=== PATIENT | female | born 1945 | race Caucasian/White ===

== ENCOUNTER 2016-05-15 13:26 | Emergency (ER) | payer MEDICARE, BC ==
--- NOTE | 2016-05-15 14:39 | EDM.PDOC ---
[id number]: TROUBLE BREATHING, WEAKNESS, DIZZY Time Seen by Provider: 05/15/16 14:38 Source: Reports: Patient History Limitations: Reports: No limitations - History of Present Illness INITIAL COMMENTS - FREE TEXT/NARRATIVE: 70-year-old male with generalized weakness that has been worsening for weeks. She feels like she is short of breath with activity. No fevers but has had some chills, no significant pain. Today she felt so weak she couldn't walk and was dizzy so her family brought her in to be seen. She's had no diarrhea but has intermittent headaches. She does have a history of hypercalcemia, and had a very profound episode of sepsis with coma 6 years ago. Severity: moderate Location, General: Reports: generalized (Her legs especially feel weakest) Associated Symptoms: Reports: shortness of breath, weakness. Denies: chest pain , fever/chills, nausea/vomiting - Related Data Allergies/ADRs: Allergies Allergy/AdvReac Type Severity Reaction Status Date / Time gabapentin AdvReac Irritabilit Verified 05/15/16 13:57 y Home Meds: Home Meds Fluticasone/Salmeterol [Advair 250-50] 1 inh INH BID 10/16/13 [History] Lisinopril 5 mg PO DAILY 10/16/13 [History] Raloxifene [Evista] 60 mg PO DAILY 10/16/13 [History] Rosuvastatin [Crestor] 5 mg PO DAILY 10/16/13 [History] buPROPion [Wellbutrin XL] 300 mg PO DAILY 10/16/13 [History] Ibuprofen [Advil] 200 mg PO Q6HR PRN 02/04/14 [History] Albuterol Sulfate [Proair Hfa] 2 puff INH Q4H PRN 02/06/14 [History] Cholecalciferol (Vitamin D3) [Vitamin D] 2,000 units PO DAILY 02/06/14 [History] Diazepam [Valium] 5 mg PO DAILY PRN 02/06/14 [History] Multivitamin [Daily Multiple Vitamin] 1 tab PO DAILY 02/06/14 [History] Past Medical History Cardiovascular History: Reports: Hypertension Respiratory History: Reports: Bronchitis, recurrent, COPD, Pneumonia, recurrent , SOB Gastrointestinal History: Reports: GERD Genitourinary History: Reports: Acute renal failure 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: , 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 (see below) Other OB/BYN History: hyster Musculoskeletal History: Reports: Back pain, chronic, Osteoarthritis Neurological History: Reports: Headaches, chronic Psychiatric History: Reports: Anxiety, Depression, PTSD Dermatologic History: Reports: Melanoma - Past Surgical History GI Surgical History: Reports: Cholecystectomy, Colonoscopy Social & Family History - Tobacco Use Smoking Status *Q: Former Smoker Years of Tobacco use: 40 Packs/Tins Daily: 1.5 Used Tobacco, but Quit: Yes Month Tobacco Last Used: 0 Second Hand Smoke Exposure: No - Caffeine Use Caffeine Use: Reports: Coffee Other Caffeine Use: 1-2 cups per day - Alcohol Use Days Per Week of Alcohol Use: 0 - Recreational Drug Use Recreational Drug Use: No ED ROS GENERAL - Review of Systems Review Of Systems: See Below Constitutional: Reports: chills. Denies: fever HEENT: Reports: No symptoms Respiratory: Reports: Shortness of Breath (Especially with activity) Cardiovascular: Denies: Chest pain, Palpitations Endocrine: Reports: fatigue GI/Abdominal: Denies: Abdominal pain, Nausea, Vomiting : Reports: no symptoms Musculoskeletal: Reports: other (Diffuse muscle weakness but no pain). Denies: muscle pain Skin: Reports: no symptoms Neurological: Reports: Dizziness. Denies: Headache Psychiatric: Reports: No symptoms ED EXAM, GENERAL - Physical Exam Exam: See Below Exam Limited By: No limitations General Appearance: alert, no apparent distress Eye Exam: bilateral eye: normal inspection Ears: normal TMs Respiratory/Chest: no respiratory distress, lungs clear Cardiovascular: regular rate, rhythm GI/Abdominal: soft, non tender Extremities: normal inspection, other (Normal symmetric strength on my exam). No: pedal edema Neurological: alert, oriented, no motor/sensory deficits Psychiatric: normal affect, normal mood Skin Exam: Warm, Dry Course - Vital Signs Last Recorded V/S: Last Vital Signs Temp 99.1 F 05/15/16 15:55 Pulse 75 05/15/16 15:55 Resp 12 05/15/16 15:55 BP 112/59 L 05/15/16 15:55 Pulse Ox 95 05/15/16 15:55 - Orders/Labs/Meds Labs: Laboratory Tests 05/15/16 05/15/16 Range/Units 14:46 14:46 WBC 5.8 (4.5-11.0) K/uL RBC 4.50 (3.30-5.50) M/uL Hgb 13.0 (12.0-15.0) g/dL Hct 40.2 (36.0-48.0) % MCV 89 (80-98) fL MCH 29 (27-31) pg MCHC 32 (32-36) % Plt Count 246 (150-400) K/uL Neut % (Auto) 52 (36-66) % Lymph % (Auto) 29 (24-44) % [place] % (Auto) 13 H (2-6) % Eos % (Auto) 5 H (2-4) % Baso % (Auto) 1 (0-1) % Sodium 143 (140-148) mmol/L Potassium 4.4 (3.6-5.2) mmol/L Chloride 106 (100-108) mmol/L Carbon Dioxide 27 (21-32) mmol/L Anion Gap 10.1 (5.0-14.0) mmol/L BUN 13 (7-18) mg/dL Creatinine 0.8 (0.6-1.0) mg/dL Est Cr Clr Drug Dosing 54.13 mL/min Estimated GFR (MDRD) > 60 (>60) Glucose 80 (74-106) mg/dL Calcium 9.0 (8.5-10.1) mg/dL Total Bilirubin 0.3 (0.2-1.0) mg/dL AST 19 (15-37) U/L ALT 23 (12-78) U/L Alkaline Phosphatase 64 (46-116) U/L Creatine Kinase 77 (26-192) U/L Troponin I < 0.017 (0.000-0.056) ng/mL Total Protein 7.2 (6.4-8.2) g/dL Albumin 4.0 (3.4-5.0) g/dL Globulin 3.2 (2.3-3.5) g/dL Albumin/Globulin Ratio 1.3 (1.2-2.2) Meds: Medications Discontinued Medications Generic Name Dose Route Start Last Admin Trade Name Freq PRN Reason Stop Dose Admin Sodium Chloride 1,000 mls @ 1,000 mls/hr 05/15/16 15:00 05/15/16 15:22 Normal Saline IV 1,000 mls/hr ASDIRECTED CARLIE Administration - Re-Assessments/Exams Free Text/Narrative Re-Assessment/Exam: 05/15/16 16:08 1 L of normal saline was given to the patient while a CBC CMP and troponin were obtained. All labs were normal, patient was reassured. She likely has a lingering viral syndrome and needs to run its course. She was encouraged to increase activity and diet as tolerated and return if worsening or concerns. Departure - Departure Time of Disposition: 16:53 Disposition: Home, Self-Care 01 Condition: good Clinical Impression: Generalized muscle weakness, Dehydration, mild Instructions: Weakness, [id number], Dehydration, Adult Referrals: Omaira Cates PA [Primary Care Provider] - Forms: ED Department Discharge Care Plan Goals: Increase diet and activity as tolerated. Consider rechecking in 3-4 days if not improving satisfactorily.
[2016-05-15] MEDS ORDERED: Sodium Chloride 0.9% 1,000 ML IV SCH (15:00)
[2016-05-15 15:56] VITALS: BP 112/59
--- NOTE | 2016-05-16 10:34 | CR ---
Chest 2V HISTORY: Dyspnea COMPARISON: CT scan 10/29/2015. FINDINGS: COPD changes. Scarring in the peripheral aspect of the right upper lobe which was present on prior CT scan. No acute infiltrates or effusions. No acute congestive change.
== END 2016-05-15 16:52 | disposition home or self-care (01) ==
LOC: JP.ED 13:26
DX: R53.1 Weakness (principal); E86.0 Dehydration; I10 Essential (primary) hypertension; J44.9 Chronic obstructive pulmonary disease, unspecified; K21.9 Gastro-esophageal reflux disease without esophagitis; F41.9 Anxiety disorder, unspecified; F32.9 Major depressive disorder, single episode, unspecified; Z90.49 Acquired absence of other specified parts of digestive tract; Z79.899 Other long term (current) drug therapy; Z88.8 Allergy status to other drugs, medicaments and biological substances; Z87.891 Personal history of nicotine dependence
CPT/HCPCS: 36415; 71020; 80053; 82550; 84484; 85025; 96360; 96361; 99285; J7040; 99284

== ENCOUNTER 2016-06-07 06:48 | Day surgery (SDC) | payer MEDICARE, BC ==
[2016-06-07] MEDS ORDERED: Lidocaine 2% Viscous Solution 15 ML Cup ONE (06:57)
[2016-06-07] MEDS ORDERED: Lidocaine 4% Top Soln 50 ML Bottle ONE (06:58)
[2016-06-07] MEDS ORDERED: Propofol 200 MG/20 ML SDV ONE (06:58)
[2016-06-07] MEDS ORDERED: fentaNYL 100 MCG/2 ML SDV ONE (06:58)
[2016-06-07] MEDS ORDERED: Midazolam 1 MG/ML 2 ML SDV ONE (06:58)
[2016-06-07] MEDS ORDERED: Lidocaine 4% Top Soln 4 ML LTA Syringe ONE (07:00)
[2016-06-07] MEDS ORDERED: Iopamidol 612 MG/ML 100 ML Bottle IV PRN (07:24)
[2016-06-07] MEDS ORDERED: Sodium Chloride 0.9% 80 ML IV SCH (07:30)
[2016-06-07] MEDS ORDERED: Dextrose 5%-Lactated Ringers 1,000 ML IV SCH (07:45)
[2016-06-07] MEDS ORDERED: Ondansetron 4 MG/2 ML SDV ONE (11:45)
[2016-06-07] MEDS ORDERED: Ondansetron 4 MG/2 ML SDV IVPUSH ONE (11:50)
[2016-06-07 13:24] VITALS: BP 117/65
--- NOTE | 2016-06-10 10:50 | OR ---
DATE OF PROCEDURE: 06/07/2016 PREOPERATIVE DIAGNOSES: Worsening cough and respiratory symptoms. POSTOPERATIVE DIAGNOSIS: Grossly normal flexible bronchoscopy. OPERATIVE PROCEDURE: Flexible bronchoscopy with tracheobronchial washings and bronchoalveolar lavage to posterior segment of right upper lobe (10114). ANESTHESIA: Topical plus IV sedation. INDICATIONS: This is a 71-year-old with some worsening respiratory symptoms. Flexible bronchoscopy with biopsies and/or bronchoalveolar lavage is indicated. Preoperative CT scan was obtained, which showed emphysematous changes and some scarring in the posterior segment of the right upper lobe. There was a 5 mm subpleural nodule in the left lower lobe, which is likely doubtful of clinical significance. Plan is to proceed with a flexible bronchoscopy with biopsies and/or BAL as indicated. Potential risks including bleeding and infection, aspiration of gastric contents and such were reviewed, and the patient wishes to proceed. DETAILS OF PROCEDURE: The patient was taken to the operating room and placed in a supine position. After IV sedation was administered, the translaryngeal injection of lidocaine was placed per Anesthesia, and the flexible bronchoscope was then passed through the right side of the nose. The visualized nasopharynx, hypopharynx, and larynx were unremarkable. Cord motion was symmetrical. As one passed into the trachea, generalized tracheobronchial exam was undertaken. This was essentially normal with there being no unusual secretions and no redness or areas of narrowing. At that point, diffuse tracheobronchial washings were obtained. Given that the only significant site of pathology appeared to be in the posterior segment of the right upper lobe, bronchoalveolar lavage was obtained at that level with injection of 200 mL of saline. Relatively little fluid came back, but enough for diagnostic purposes, as most of this probably filled into some emphysematous blebs. The scope was then withdrawn and the procedure then concluded. The plan will be to have the patient follow up with Omaira Cates in [facility] in 7-10 days. With the pulmonary nodule being seen on CT scan, I think I would recommend repeating a CT scan at 6-month intervals for 2 years. If it remains stable at that point, then further followup would not be necessary. Akhil Brown MD /[id number]
== END 2016-06-07 14:00 | disposition home or self-care (01) ==
LOC: JP.SDS 06:48 → EDSTATUS 10:15 → JP.SDS 14:00
PROVIDERS: ATTEND Surgery
DX: R05 Cough (principal); J44.9 Chronic obstructive pulmonary disease, unspecified; Z79.899 Other long term (current) drug therapy
CPT/HCPCS: 31624; 71260; 87015; 87070; 87077; 87102; 87116; 87205; 87206; 87220; A9270; J2250; J2405; J2704; J3010; J7030; J7042; Q9967; 88112; 88305

== ENCOUNTER 2016-08-22 11:30 | Emergency (ER) | payer MEDICARE, BC ==
[2016-08-22 12:28] VITALS: BP 140/68
[2016-08-22] MEDS ORDERED: Aspirin 81 MG Tab.Chew PO ONE (12:44)
--- NOTE | 2016-08-22 13:42 | EDM.PDOC ---
ED HPI GENERAL MEDICAL PROBLEM - General Chief Complaint: Chest Pain Stated Complaint: CHEST PAINS, HIGH BLOOD PRESSURE, DIZZY Time Seen by Provider: 08/22/16 11:50 History Limitations: Reports: No Limitations - History of Present Illness INITIAL COMMENTS - FREE TEXT/NARRATIVE: pt arrived she was in PT and she devloped pain in the rt chest and her bp was higher than usual. She felt like she had a tightness in the head area. Onset: Other ( this came on quite suddenly while having therapy. ) Duration: Minutes: Location: Reports: Chest Associated Symptoms: Reports: No Other Symptoms - Related Data Allergies Allergy/AdvReac Type Severity Reaction Status Date / Time codeine Allergy Other Verified 08/22/16 12:45 gabapentin AdvReac Irritabilit Verified 08/22/16 12:45 y Home Meds: Home Meds Fluticasone/Salmeterol [Advair 250-50] 1 inh INH BID 10/16/13 [History] Lisinopril 5 mg PO DAILY 10/16/13 [History] Raloxifene [Evista] 60 mg PO DAILY 10/16/13 [History] Rosuvastatin [Crestor] 5 mg PO DAILY 10/16/13 [History] buPROPion [Wellbutrin XL] 300 mg PO DAILY 10/16/13 [History] Ibuprofen [Advil] 200 mg PO Q6HR PRN 02/04/14 [History] Cholecalciferol (Vitamin D3) [Vitamin D] 2,000 units PO DAILY 02/06/14 [History] Diazepam [Valium] 5 mg PO DAILY PRN 02/06/14 [History] Multivitamin [Daily Multiple Vitamin] 1 tab PO DAILY 02/06/14 [History] Albuterol [Ventolin HFA] 2 puff IH Q4HR PRN 06/03/16 [History] Aspirin [Adult Low Dose Aspirin EC] 81 mg PO DAILY 06/03/16 [History] Benzonatate [Tessalon Perles] 100 mg PO TID PRN 06/03/16 [History] Esomeprazole Magnesium [Nexium] 40 mg PO DAILY 06/03/16 [History] Nicotine Polacrilex [Nicotine Gum] 1 stick PO ASDIRECTED PRN 06/03/16 [History] Nystatin [Mycostatin] 5 ml PO QID PRN 06/03/16 [History] traZODone 12.5 mg PO BEDTIME 06/03/16 [History] Past Medical History HEENT History: Reports: Cataract Other HEENT History: upper and lower dental implants Cardiovascular History: Reports: High Cholesterol, Hypertension Respiratory History: Reports: Asthma, Bronchitis, Recurrent, COPD, Pneumonia, Recurrent, SOB Gastrointestinal History: Reports: GERD Genitourinary History: Reports: Acute Renal Failure 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: , 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) Other OB/BYN History: hyster Musculoskeletal History: Reports: Back Pain, Chronic, Osteoarthritis Neurological History: Reports: Headaches, Chronic Psychiatric History: Reports: Anxiety, Depression, PTSD Oncologic (Cancer) History: Reports: 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) Other Oncologic History: melanoma Dermatologic History: Reports: Melanoma - Past Surgical History Respiratory Surgical History: Reports: 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) GI Surgical History: Reports: Cholecystectomy, Colonoscopy Female Surgical History: Reports: Hysterectomy, Salpingo-Oophorectomy, Tubal Ligation Social & Family History - Tobacco Use Smoking Status *Q: Former Smoker Years of Tobacco use: 50 Packs/Tins Daily: 1 Used Tobacco, but Quit: No Month Tobacco Last Used: 0 Second Hand Smoke Exposure: No - Caffeine Use Caffeine Use: Reports: Coffee Other Caffeine Use: 1-2 cups per day - Alcohol Use Days Per Week of Alcohol Use: 0 - Recreational Drug Use Recreational Drug Use: No ED ROS GENERAL - Review of Systems Review Of Systems: See Below Constitutional: Reports: No Symptoms HEENT: Reports: No Symptoms Respiratory: Reports: No Symptoms Cardiovascular: Reports: No Symptoms, Other (pain in the rt chest. ) Endocrine: Reports: No Symptoms GI/Abdominal: Reports: No Symptoms : Reports: No Symptoms Musculoskeletal: Reports: Other ( tight in the post cervical area. ) Skin: Reports: No Symptoms ED EXAM, GENERAL - Physical Exam Exam: See Below Free Text/Narrative:: Pt had tightness in the post cervical anrea and about the head. She had some rt sided chest pain. Her bp went up for her but not extrwemely high. Exam Limited By: No Limitations General Appearance: Alert, Anxious Ears: Normal TMs Nose: Normal Inspection Throat/Mouth: Normal Inspection Head: Atraumatic Neck: Other (muscle spasm) Respiratory/Chest: No Respiratory Distress, Other ( mild tenderness in the chest wall on the rt. ) Cardiovascular: Regular Rate, Rhythm GI/Abdominal: Soft, Non-Tender, Other ( no sig epigastric tenderness) Rectal (Female) Exam: Deferred Back Exam: Normal Inspection Extremities: Normal Inspection Neurological: Alert, Oriented, Normal Cognition Psychiatric: Anxious, Other ( bp mildly elevated. ) Course - Vital Signs Last Recorded V/S: Last Vital Signs Temp 36.5 C 08/22/16 11:47 Pulse 80 08/22/16 12:28 Resp 16 08/22/16 12:28 BP 140/68 08/22/16 12:28 Pulse Ox 92 L 08/22/16 12:28 - Orders/Labs/Meds Orders: Active Orders 24 hr Category Date Time Status EKG Documentation Completion [RC] ASDIRECTED Care 08/22/16 11:55 Active EKG 12 Lead [EK] Routine Ther 08/22/16 11:55 Ordered Labs: Laboratory Tests 08/22/16 08/22/16 08/22/16 Range/Units 12:04 12:04 12:04 WBC 6.3 (4.5-11.0) K/uL RBC 4.55 (3.30-5.50) M/uL Hgb 13.4 (12.0-15.0) g/dL Hct 40.9 (36.0-48.0) % MCV 90 (80-98) fL MCH 30 (27-31) pg MCHC 33 (32-36) % Plt Count 238 (150-400) K/uL Neut % (Auto) 63 (36-66) % Lymph % (Auto) 22 L (24-44) % [place] % (Auto) 11 H (2-6) % Eos % (Auto) 3 (2-4) % Baso % (Auto) 1 (0-1) % Sodium 139 L (140-148) mmol/L Potassium 4.0 (3.6-5.2) mmol/L Chloride 104 (100-108) mmol/L Carbon Dioxide 29 (21-32) mmol/L Anion Gap 10.0 (5.0-14.0) mmol/L BUN 15 (7-18) mg/dL Creatinine 0.8 (0.6-1.0) mg/dL Est Cr Clr Drug Dosing 51.01 mL/min Estimated GFR (MDRD) > 60 (>60) Glucose 128 H (74-106) mg/dL Calcium 9.0 (8.5-10.1) mg/dL Total Bilirubin 0.2 (0.2-1.0) mg/dL AST 19 (15-37) U/L ALT 18 (12-78) U/L Alkaline Phosphatase 68 (46-116) U/L Creatine Kinase (26-192) U/L Troponin I < 0.017 (0.000-0.056) ng/mL Total Protein 7.1 (6.4-8.2) g/dL Albumin 3.6 (3.4-5.0) g/dL Globulin 3.5 (2.3-3.5) g/dL Albumin/Globulin Ratio 1.0 L (1.2-2.2) Urine Color Urine Appearance Urine pH (4.5-8.0) Ur Specific [place] (1.008-1.030) Urine Protein (NEGATIVE) mg/dL Urine Glucose (UA) (NEGATIVE) mg/dL Urine Ketones (NEGATIVE) mg/dL Urine Occult Blood (NEGATIVE) Urine Nitrite (NEGATIVE) Urine Bilirubin (NEGATIVE) Urine Urobilinogen (NORMAL) mg/dL Ur Leukocyte Esterase (NEGATIVE) Urine RBC (0-5) Urine WBC (0-5) Ur Epithelial Cells Amorphous Sediment Urine Bacteria Urine Mucus 08/22/16 08/22/16 Range/Units 12:04 12:37 WBC (4.5-11.0) K/uL RBC (3.30-5.50) M/uL Hgb (12.0-15.0) g/dL Hct (36.0-48.0) % MCV (80-98) fL MCH (27-31) pg MCHC (32-36) % Plt Count (150-400) K/uL Neut % (Auto) (36-66) % Lymph % (Auto) (24-44) % [place] % (Auto) (2-6) % Eos % (Auto) (2-4) % Baso % (Auto) (0-1) % Sodium (140-148) mmol/L Potassium (3.6-5.2) mmol/L Chloride (100-108) mmol/L Carbon Dioxide (21-32) mmol/L Anion Gap (5.0-14.0) mmol/L BUN (7-18) mg/dL Creatinine (0.6-1.0) mg/dL Est Cr Clr Drug Dosing mL/min Estimated GFR (MDRD) (>60) Glucose (74-106) mg/dL Calcium (8.5-10.1) mg/dL Total Bilirubin (0.2-1.0) mg/dL AST (15-37) U/L ALT (12-78) U/L Alkaline Phosphatase (46-116) U/L Creatine Kinase 1 L (26-192) U/L Troponin I (0.000-0.056) ng/mL Total Protein (6.4-8.2) g/dL Albumin (3.4-5.0) g/dL Globulin (2.3-3.5) g/dL Albumin/Globulin Ratio (1.2-2.2) Urine Color Yellow Urine Appearance Clear Urine pH 6.0 (4.5-8.0) Ur Specific [place] 1.015 (1.008-1.030) Urine Protein Negative (NEGATIVE) mg/dL Urine Glucose (UA) Normal (NEGATIVE) mg/dL Urine Ketones Negative (NEGATIVE) mg/dL Urine Occult Blood Negative (NEGATIVE) Urine Nitrite Negative (NEGATIVE) Urine Bilirubin Negative (NEGATIVE) Urine Urobilinogen Normal (NORMAL) mg/dL Ur Leukocyte Esterase Negative (NEGATIVE) Urine RBC 0-5 (0-5) Urine WBC Not seen (0-5) Ur Epithelial Cells Few Amorphous Sediment Not seen Urine Bacteria Not seen Urine Mucus Not seen Meds: Medications Discontinued Medications Generic Name Dose Route Start Last Admin Trade Name Freq PRN Reason Stop Dose Admin Aspirin 324 mg 08/22/16 12:44 08/22/16 13:41 Aspirin PO 08/22/16 12:45 324 mg ONETIME ONE Administration - Re-Assessments/Exams Free Text/Narrative Re-Assessment/Exam: 08/22/16 13:52 cardiac enzymes were normal, ekg looked good, other lab was normal. She was given asa. The pain went away shortly after arival and her bp went down. m Departure - Departure Time of Disposition: 13:42 Disposition: Home, Self-Care 01 Condition: Fair Clinical Impression: Atypical chest pain Referrals: Omaira Cates PA [Primary Care Provider] - Forms: ED Department Discharge Care Plan Goals: follow up appt with Concha Cates, If she has any further chest pain and she has not had a cardiac stress darryl recenly she should have a lexiscan, rtc if increased problems. - My Orders Last 24 Hours: My Active Orders 08/22/16 11:55 EKG Documentation Completion [RC] ASDIRECTED EKG 12 Lead [EK] Routine - Assessment/Plan Last 24 Hours: My Active Orders 08/22/16 11:55 EKG Documentation Completion [RC] ASDIRECTED EKG 12 Lead [EK] Routine
== END 2016-08-22 13:55 | disposition home or self-care (01) ==
LOC: JP.ED 11:30
DX: R07.89 Other chest pain (principal); E78.00 Pure hypercholesterolemia, unspecified; I10 Essential (primary) hypertension; J45.909 Unspecified asthma, uncomplicated; J44.9 Chronic obstructive pulmonary disease, unspecified; Z87.01 Personal history of pneumonia (recurrent); K21.9 Gastro-esophageal reflux disease without esophagitis; M19.90 Unspecified osteoarthritis, unspecified site; F41.9 Anxiety disorder, unspecified; F32.9 Major depressive disorder, single episode, unspecified; Z90.710 Acquired absence of both cervix and uterus; Z88.5 Allergy status to narcotic agent; Z88.8 Allergy status to other drugs, medicaments and biological substances; Z79.899 Other long term (current) drug therapy; Z79.82 Long term (current) use of aspirin; Z98.49 Cataract extraction status, unspecified eye; Z87.891 Personal history of nicotine dependence; N17.9 Acute kidney failure, unspecified
CPT/HCPCS: 36415; 80053; 81001; 82550; 84484; 85025; 93005; 99285; A9270; 93010; 99284

== ENCOUNTER 2018-04-03 14:57 | Emergency (ER) | payer MEDICARE, BC, MEDICAID ==
[2018-04-03] MEDS ORDERED: Simethicone 80 MG Tab.Chew PO ONE (15:47)
[2018-04-03] MEDS ORDERED: LORazepam 1 MG Tab PO ONE (16:16)
[2018-04-03] MEDS ORDERED: Lactated Ringers 1,000 ML IV ONE (16:50)
[2018-04-03] MEDS ORDERED: Sodium Chloride 0.9% 10 ML Syringe FLUSH PRN (16:53)
[2018-04-03] MEDS ORDERED: Sodium Chloride 0.9% 80 ML IV SCH (17:00)
[2018-04-03] MEDS ORDERED: Iopamidol 612 MG/ML 100 ML Bottle IV SCH (17:00)
--- NOTE | 2018-04-03 18:14 | CRLCT ---
INDICATION: Abdominal pain. Distention TECHNIQUE: CT abdomen and pelvis acquired with IV contrast. 78 mL of Isovue 300 administered. COMPARISON: None available FINDINGS: Lower chest: Unremarkable. Liver: Multiple small near water attenuation hepatic low-density lesions suggestive of cysts, measuring up to 1.6 cm, although some are too small to adequately evaluate. Spleen: Unremarkable. Pancreas: Apparent fatty atrophy of the pancreatic head. A curvilinear regional soft tissue density on image 45 could represent residual pancreatic tissue. Minimal reticular densities along the pancreatic body and tail which may be related to pancreatic tissue. Gallbladder and bile ducts: Cholecystectomy Adrenal glands: Unremarkable. Kidneys: No hydronephrosis. Apparent minimal urothelial enhancement in portions of the ureters which could be physiologic. GI tract: A contracted stomach, limiting evaluation. Gas and fluid filled, however not abnormally dilated, abdominal and pelvic small bowel segments, nonspecific. A normal appendix. Scattered colonic diverticula without diverticulitis. An irregular soft tissue density in the proximal ascending colon on image 61 of series 2. Vascular structures: Atherosclerotic changes. Lymph nodes: No abnormally enlarged lymph nodes. Subcentimeter right lower quadrant mesenteric lymph nodes, nonspecific. Miscellaneous: No free air or significant free fluid. Pelvic Organs: Hysterectomy. A small focus of mild soft tissue prominence at the bladder base seen on image 58 of series 4, versus volume averaging with adjacent tissues. Bones: Unremarkable for age. IMPRESSION: No evidence of appendicitis, diverticulitis or bowel obstruction. Some fluid and gas-filled small bowel segments are nonspecific. Correlate clinically to exclude a mild enteritis. Minimal reticular densities along the pancreas may be related to pancreatic tissue, however correlate with pancreatic enzymes to exclude mild pancreatic inflammation. An irregular soft tissue density in the proximal ascending colon could be partially related to peristalsis, however the appearance is concerning for a primary colonic neoplasm and further evaluation with colonoscopy is recommended. Minimal urothelial enhancement in portions of the ureters could be physiologic. Correlate with urinalysis. Mild focal soft tissue prominence at the bladder base may be related to volume averaging, however recommend further urological evaluation to exclude a small urothelial lesion. Dictated by Marco Antonio Castillo MD @ 04/03/2018 6:13:45 PM Please note that all CT scans at this facility use dose modulation, iterative reconstruction, and/or weight-based dosing when appropriate to reduce radiation dose to as low as reasonably achievable. Dictated by: Marco Antonio Castillo MD @ 04/03/2018 18:13:52 (Electronically Signed)
[2018-04-03 18:24] VITALS: BP 132/70
--- NOTE | 2018-04-03 18:30 | EDM.PDOC ---
ED HPI GENERAL MEDICAL PROBLEM - General Chief Complaint: Gastrointestinal Problem Stated Complaint: FROM CLINIC POSSIBLE BOWL OBSTRUCTION Time Seen by Provider: 04/03/18 15:33 Source of Information: Reports: Patient, Family, Old Records, RN Notes Reviewed History Limitations: Reports: No Limitations - History of Present Illness INITIAL COMMENTS - FREE TEXT/NARRATIVE: 72-year-old female sent over from clinic for concern about bowel obstruction she did present with lab work which was reviewed as well as chest x-ray and abdominal film, the abdominal film shows nonspecific dilated loops of bowel which is confirmed by radiology. abdominal Pain Score (Numeric/FACES): 2 - Related Data Allergies Allergy/AdvReac Type Severity Reaction Status Date / Time codeine AdvReac Nausea and Verified 04/03/18 15:16 Vomiting gabapentin AdvReac Irritabilit Verified 04/03/18 15:16 y Home Meds: Home Meds Fluticasone/Salmeterol [Advair 250-50] 1 inh INH BID 10/16/13 [History] Lisinopril 5 mg PO DAILY 10/16/13 [History] Raloxifene [Evista] 60 mg PO DAILY 10/16/13 [History] Rosuvastatin [Crestor] 5 mg PO DAILY 10/16/13 [History] buPROPion [Wellbutrin XL] 300 mg PO DAILY 10/16/13 [History] Ibuprofen [Advil] 200 mg PO Q6HR PRN 02/04/14 [History] Cholecalciferol (Vitamin D3) [Vitamin D] 2,000 units PO DAILY 02/06/14 [History] Multivitamin [Daily Multiple Vitamin] 1 tab PO DAILY 02/06/14 [History] Albuterol [Ventolin HFA] 2 puff IH Q4HR PRN 06/03/16 [History] Esomeprazole Magnesium [Nexium] 40 mg PO DAILY 06/03/16 [History] Nicotine Polacrilex [Nicotine Gum] 1 stick PO ASDIRECTED PRN 06/03/16 [History] traZODone 12.5 mg PO BEDTIME 06/03/16 [History] Biotin 10,000 mcg PO DAILY 03/29/17 [History] Past Medical History HEENT History: Reports: Cataract Other HEENT History: upper and lower dental implants Cardiovascular History: Reports: High Cholesterol, Hypertension Respiratory History: Reports: Asthma, Bronchitis, Recurrent, COPD, Pneumonia, Recurrent, SOB Gastrointestinal History: Reports: GERD Genitourinary History: Reports: Acute Renal Failure 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: , 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 History: hyster Musculoskeletal History: Reports: Back Pain, Chronic, Osteoarthritis, Other ( See Below) Other Musculoskeletal History: Lambert-Eaton Syndrome Neurological History: Reports: Headaches, Chronic Psychiatric History: Reports: Anxiety, Depression, PTSD Oncologic (Cancer) History: Reports: Lung, 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) Other Oncologic History: melanoma Dermatologic History: Reports: Melanoma - Past Surgical History Respiratory Surgical History: Reports: 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) Other Respiratory Surgeries/Procedures: bronchoscopy GI Surgical History: Reports: Cholecystectomy, Colonoscopy Female Surgical History: Reports: Hysterectomy, Salpingo-Oophorectomy, Tubal Ligation Oncologic Surgical History: Reports: 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) Other Oncologic Surgeries/Procedures: chemo and radiation a year ago. Social & Family History - Tobacco Use Smoking Status *Q: Former Smoker Used Tobacco, but Quit: Yes Month/Year Tobacco Last Used: 8 - Caffeine Use Caffeine Use: Reports: Coffee, Soda Other Caffeine Use: 1-2 cups per day - Recreational Drug Use Recreational Drug Use: No ED ROS GENERAL - Review of Systems Review Of Systems: See Below Constitutional: Reports: No Symptoms HEENT: Reports: No Symptoms Respiratory: Reports: No Symptoms Cardiovascular: Reports: No Symptoms GI/Abdominal: Reports: Abdominal Pain. Denies: Flatus, Nausea, Vomiting : Reports: No Symptoms Musculoskeletal: Reports: Back Pain ED EXAM, GI/ABD - Physical Exam Exam: See Below Exam Limited By: No Limitations General Appearance: Alert, WD/WN, No Apparent Distress Respiratory/Chest: No Respiratory Distress, Lungs Clear, Normal Breath Sounds, No Accessory Muscle Use, Chest Non-Tender Cardiovascular: Regular Rate, Rhythm, No Murmur GI/Abdominal Exam: Normal Bowel Sounds, Soft, Distended, Tender Course - Vital Signs Last Recorded V/S: Last Vital Signs Temp 98.1 F 04/03/18 16:52 Pulse 97 04/03/18 18:23 Resp 16 04/03/18 18:23 BP 132/70 04/03/18 18:23 Pulse Ox 94 L 04/03/18 18:23 - Orders/Labs/Meds Orders: Active Orders 24 hr Category Date Time Status Iopamidol [Isovue-300 (61%)] Med 04/03/18 17:00 Active 78 ml IV . DIRECTED Lactated Ringers [Ringers, Lactated] 1,000 ml Med 04/03/18 16:50 Active IV BOLUS Sodium Chloride 0.9% [Normal Saline] 80 ml Med 04/03/18 17:00 Active IV ASDIRECTED Sodium Chloride 0.9% [Saline Flush] Med 04/03/18 16:53 Active 10 ml FLUSH ASDIRECTED PRN Nasogastric Orogastric Tube Insertion [OM.PC] Routine Oth 04/03/18 16:16 Ordered Medication Orders Lactated Ringer's (Ringers, Lactated) 1,000 mls @ 500 mls/hr IV BOLUS ONE Stop: 04/03/18 18:49 Last Admin: 04/03/18 17:22 Dose: 500 mls/hr Sodium Chloride (Normal Saline) 80 mls @ 3 mls/sec IV ASDIRECTED CARLIE Last Admin: 04/03/18 17:20 Dose: 3 mls/sec Iopamidol (Isovue-300 (61%)) 78 ml IV . DIRECTED CARLIE Last Admin: 04/03/18 17:20 Dose: 78 ml Sodium Chloride (Saline Flush) 10 ml FLUSH ASDIRECTED PRN PRN Reason: Keep Vein Open Last Admin: 04/03/18 17:20 Dose: 10 ml Meds: Medications Generic Name Dose Route Start Last Admin Trade Name Freq PRN Reason Stop Dose Admin Lactated Ringer's 1,000 mls @ 500 mls/hr 04/03/18 16:50 04/03/18 17:22 Ringers, Lactated IV 04/03/18 18:49 500 mls/hr BOLUS ONE Administration Sodium Chloride 80 mls @ 3 mls/sec 04/03/18 17:00 04/03/18 17:20 Normal Saline IV 3 mls/sec ASDIRECTED CARLIE Administration Iopamidol 78 ml 04/03/18 17:00 04/03/18 17:20 Isovue-300 (61%) IV 78 ml . DIRECTED CARLIE Administration Sodium Chloride 10 ml 04/03/18 16:53 04/03/18 17:20 Saline Flush FLUSH 10 ml ASDIRECTED PRN Administration Keep Vein Open Discontinued Medications Generic Name Dose Route Start Last Admin Trade Name Freq PRN Reason Stop Dose Admin Lorazepam 1 mg 04/03/18 16:16 04/03/18 16:20 Ativan PO 04/03/18 16:17 1 mg ONETIME ONE Administration Simethicone 160 mg 04/03/18 15:47 04/03/18 15:53 Simethicone PO 04/03/18 15:48 160 mg ONETIME ONE Administration Departure - Departure Time of Disposition: 18:29 Disposition: Home, Self-Care 01 Condition: Fair Clinical Impression: Abdominal distention - Discharge Information Referrals: Omaira Cates PA [Primary Care Provider] - Forms: ED Department Discharge Additional Instructions: Continue to try the simethicone as needed for gas relief, Please followup with your primary care provider in 3-5 days if not better, please call return to the emergency department with worsening of symptoms. - Problem List Review Problem List Initiated/Reviewed/Updated: (B thank you) - My Orders Last 24 Hours: My Active Orders 04/03/18 16:16 Nasogastric Orogastric Tube Insertion [OM.PC] Routine 04/03/18 16:50 Lactated Ringers [Ringers, Lactated] 1,000 ml IV BOLUS 04/03/18 16:53 Sodium Chloride 0.9% [Saline Flush] 10 ml FLUSH ASDIRECTED PRN 04/03/18 17:00 Iopamidol [Isovue-300 (61%)] 78 ml IV . DIRECTED Sodium Chloride 0.9% [Normal Saline] 80 ml IV ASDIRECTED - Assessment/Plan Last 24 Hours: My Active Orders 04/03/18 16:16 Nasogastric Orogastric Tube Insertion [OM.PC] Routine 04/03/18 16:50 Lactated Ringers [Ringers, Lactated] 1,000 ml IV BOLUS 04/03/18 16:53 Sodium Chloride 0.9% [Saline Flush] 10 ml FLUSH ASDIRECTED PRN 04/03/18 17:00 Iopamidol [Isovue-300 (61%)] 78 ml IV . DIRECTED Sodium Chloride 0.9% [Normal Saline] 80 ml IV ASDIRECTED Plan: Assessment Acuity = acute Site and laterality = nonspecific abdominal distention Etiology = probable ileus versus enteritis Manifestations = none Location of injury = Home Lab values = CT scan shows no acute process no bowel obstruction Plan We did a variety treatment; attempted to place an NG for comfort however none of this was effective she is going to try and go home follow-up with primary care in 3-5 days if no improvement This note was dictated using [employer] voice recognition software please call with any questions on syntax or grammar.
== END 2018-04-03 18:50 | disposition home or self-care (01) ==
LOC: JP.ED 14:57
DX: R14.0 Abdominal distension (gaseous) (principal); E78.00 Pure hypercholesterolemia, unspecified; I10 Essential (primary) hypertension; J45.909 Unspecified asthma, uncomplicated; K21.9 Gastro-esophageal reflux disease without esophagitis; Z88.5 Allergy status to narcotic agent; Z87.891 Personal history of nicotine dependence; Z88.8 Allergy status to other drugs, medicaments and biological substances; Z79.899 Other long term (current) drug therapy
CPT/HCPCS: 74177; 96360; 96361; 99284; A9270; J1642; J7030; J7120; Q9967

== ENCOUNTER 2020-07-27 20:27 | Emergency (ER) | payer MEDICARE, BC, MEDICAID ==
[2020-07-27 21:03] VITALS: BP 162/90; PULSE 85
[2020-07-27] MEDS ORDERED: Bacitracin Oint 1 GM U/D Packet TOP ONE (21:22)
--- NOTE | 2020-07-27 21:24 | EDM.PDOC ---
ED HPI GENERAL MEDICAL PROBLEM - General Chief Complaint: Wound Recheck Stated Complaint: CUT ON LEG Time Seen by Provider: 07/27/20 21:10 Source of Information: Reports: Patient, Old Records, RN History Limitations: Reports: No Limitations - History of Present Illness INITIAL COMMENTS - FREE TEXT/NARRATIVE: 75 yo female incurred a skin tear of her R castanon 2 days ago. Has not been to the clinic. Carlito decided to come to the ER to make sure it wasn't infected. She states she is UTD on her tetanus. Onset: Sudden Onset Date: 07/25/20 Duration: Day(s): (2), Constant Location: Reports: Lower Extremity, Right Quality: Reports: Dull Severity: Mild Improves with: Reports: None Worsens with: Reports: None Context: Reports: Trauma Associated Symptoms: Reports: No Other Symptoms Treatments MANAGER APPLIED: Reports: Other (see below) (Did clean wound at home. ) - Related Data Allergies Allergy/AdvReac Type Severity Reaction Status Date / Time codeine AdvReac Nausea and Verified 07/27/20 21:06 Vomiting gabapentin AdvReac Irritabilit Verified 07/27/20 21:06 y Home Meds: Home Meds Fluticasone/Salmeterol [Advair 250-50] 1 inh INH BID 10/16/13 [History] Raloxifene [Evista] 60 mg PO DAILY 10/16/13 [History] buPROPion [Wellbutrin XL] 300 mg PO DAILY 10/16/13 [History] Ibuprofen [Advil] 200 mg PO Q6HR PRN 02/04/14 [History] Cholecalciferol (Vitamin D3) [Vitamin D] 2,000 units PO DAILY 02/06/14 [History] Multivitamin [Daily Multiple Vitamin] 1 tab PO DAILY 02/06/14 [History] Albuterol [Ventolin HFA] 2 puff IH Q4HR PRN 06/03/16 [History] Esomeprazole Magnesium [Nexium] 20 mg PO DAILY 06/03/16 [History] Nicotine Polacrilex [Nicotine Gum] 1 stick PO ASDIRECTED PRN 06/03/16 [History] traZODone 12.5 mg PO BEDTIME 06/03/16 [History] *Igg Infusions 0 mg IV ASDIRECTED 07/27/20 [History] Amifampridine Phosphate [Firdapse] 10 mg PO ASDIRECTED 07/27/20 [History] Past Medical History HEENT History: Reports: Cataract Other HEENT History: upper and lower dental implants Cardiovascular History: Reports: High Cholesterol, Hypertension Respiratory History: Reports: Asthma, Bronchitis, Recurrent, COPD, Pneumonia, Recurrent, SOB Gastrointestinal History: Reports: GERD Genitourinary History: Reports: Acute Renal Failure 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 Musculoskeletal History: Reports: Back Pain, Chronic, Osteoarthritis, 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) Other Musculoskeletal History: Lambert-Eaton Syndrome Neurological History: Reports: Headaches, Chronic Psychiatric History: Reports: Anxiety, Depression, PTSD Oncologic (Cancer) History: Reports: Lung, 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) Other Oncologic History: melanoma Dermatologic History: Reports: Melanoma - Past Surgical History HEENT Surgical History: Reports: Cataract Surgery Respiratory Surgical History: Reports: 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) Other Respiratory Surgeries/Procedures: bronchoscopy GI Surgical History: Reports: Cholecystectomy, Colonoscopy Female Surgical History: Reports: Hysterectomy, Salpingo-Oophorectomy, Tubal Ligation Social & Family History - Family History Family Medical History: No Pertinent Family History - Tobacco Use Tobacco Use Status *Q: Never Tobacco User - Caffeine Use Caffeine Use: Reports: Coffee Other Caffeine Use: 1-2 cups per day ED ROS GENERAL - Review of Systems Review Of Systems: See Below Constitutional: Reports: No Symptoms Musculoskeletal: Reports: No Symptoms Skin: Reports: Wound (R ant/lateral castanon area). Denies: Erythema Neurological: Reports: No Symptoms ED EXAM, SKIN/RASH Exam: See Below Exam Limited By: No Limitations General Appearance: Alert, WD/WN, No Apparent Distress Extremities: Normal Inspection Neurological: Alert, Oriented, CN II-XII Intact, Normal Cognition, No Motor/Sensory Deficits Psychiatric: Normal Affect, Normal Mood Skin: Warm, Dry, Normal Color, No Rash, Wound/Incision (skin tear approx 2.5 cm in diameter ant/lateral R castanon. No increased warmth or redness. No drainage. ) Characteristics: No: Erythematous Associated features: No: Warmth, Tenderness, Induration, Lymphangitis Course - Vital Signs Last Recorded V/S: Last Vital Signs Temp 36.8 C 07/27/20 21:18 Pulse 85 07/27/20 21:18 Resp 16 07/27/20 21:18 BP 162/90 H 07/27/20 21:18 Pulse Ox 94 L 07/27/20 21:18 Departure - Departure Time of Disposition: 21:30 Disposition: Home, Self-Care 01 Condition: Good Clinical Impression: Skin tear of right lower leg without complication Qualifiers: Encounter type: initial encounter Qualified Code(s): S81.811A - Laceration without foreign body, right lower leg, initial encounter - Discharge Information *PRESCRIPTION DRUG MONITORING PROGRAM REVIEWED*: Not Applicable *COPY OF PRESCRIPTION DRUG MONITORING REPORT IN PATIENT MITRA: Not Applicable Instructions: Skin Tear, [id number] Referrals: Omaira Cates PA [Primary Care Provider] - Additional Instructions: Clean your wound twice a day with soap and water. Dry. Apply antibiotic ointment and a new dressing. Recheck for increased warmth and/or redness. Sepsis Event Note (ED) - Evaluation Sepsis Screening Result: No Definite Risk - Focused Exam Vital Signs: Vital Signs Temp Pulse Resp BP Pulse Ox 07/27/20 21:18 36.8 C 85 16 162/90 H 94 L 07/27/20 21:01 36.8 C 85 16 162/90 H 94 L
== END 2020-07-27 21:43 | disposition home or self-care (01) ==
LOC: JP.ED 20:27
DX: S81.811A Laceration without foreign body, right lower leg, initial encounter (principal); E78.00 Pure hypercholesterolemia, unspecified; I10 Essential (primary) hypertension; J44.9 Chronic obstructive pulmonary disease, unspecified; Z88.5 Allergy status to narcotic agent; W26.8XXA Contact with other sharp object(s), not elsewhere classified, initial encounter
CPT/HCPCS: 99282

== ENCOUNTER 2020-08-16 11:40 | Emergency (ER) | payer MEDICARE, BC, MEDICAID ==
[2020-08-16 12:01] VITALS: PULSE 87
[2020-08-16 12:17] VITALS: BP 151/85
[2020-08-16] MEDS ORDERED: Albuterol/Ipratropium 3.0-0.5 MG/3 ML Neb Soln NEB ONE (13:25)
--- NOTE | 2020-08-16 13:25 | EDM.PDOC ---
ED HPI GENERAL MEDICAL PROBLEM - General Chief Complaint: Respiratory Problem Stated Complaint: TROUBLE BREATHING Time Seen by Provider: 08/16/20 11:55 Source of Information: Reports: Patient, Family History Limitations: Reports: No Limitations - History of Present Illness INITIAL COMMENTS - FREE TEXT/NARRATIVE: pt is much more sob. She has a history of severe copd and lung Ca. She has noted some increased swelling in her ankles. Onset: Gradual Duration: Day(s):, Other (pt is not tolerating activty well. ) Location: Reports: Chest Associated Symptoms: Reports: Cough, Shortness of Breath, Other ( feels like she can,t filler lungs. ) - Related Data Allergies Allergy/AdvReac Type Severity Reaction Status Date / Time codeine AdvReac Nausea and Verified 08/18/20 10:32 Vomiting gabapentin AdvReac Irritabilit Verified 08/18/20 10:32 y Home Meds: Home Meds Fluticasone/Salmeterol [Advair 250-50] 1 inh INH BID 10/16/13 [History] Raloxifene [Evista] 60 mg PO DAILY 10/16/13 [History] buPROPion [Wellbutrin XL] 300 mg PO DAILY 10/16/13 [History] Ibuprofen [Advil] 200 mg PO Q6HR PRN 02/04/14 [History] Cholecalciferol (Vitamin D3) [Vitamin D] 2,000 units PO DAILY 02/06/14 [History] Multivitamin [Daily Multiple Vitamin] 1 tab PO DAILY 02/06/14 [History] Albuterol [Ventolin HFA] 2 puff IH Q4HR PRN 06/03/16 [History] Esomeprazole Magnesium [Nexium] 20 mg PO DAILY 06/03/16 [History] Nicotine Polacrilex [Nicotine Gum] 1 stick PO ASDIRECTED PRN 06/03/16 [History] traZODone 12.5 mg PO BEDTIME 06/03/16 [History] *Igg Infusions 0 mg IV ASDIRECTED 07/27/20 [History] Amifampridine Phosphate [Firdapse] 10 mg PO ASDIRECTED 07/27/20 [History] Azithromycin [Zithromax] 250 mg PO DAILY 08/18/20 [History] predniSONE [Prednisone] 20 mg PO ASDIRECTED 08/18/20 [History] Past Medical History HEENT History: Reports: Cataract Other HEENT History: upper and lower dental implants Cardiovascular History: Reports: High Cholesterol, Hypertension Respiratory History: Reports: Asthma, Bronchitis, Recurrent, COPD, Pneumonia, Recurrent, SOB Gastrointestinal History: Reports: GERD Genitourinary History: Reports: Acute Renal Failure 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 Musculoskeletal History: Reports: Back Pain, Chronic, Osteoarthritis, 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) Other Musculoskeletal History: Lambert-Eaton Syndrome Neurological History: Reports: Headaches, Chronic Psychiatric History: Reports: Anxiety, Depression, PTSD Oncologic (Cancer) History: Reports: Lung, 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) Other Oncologic History: melanoma Dermatologic History: Reports: Melanoma - Past Surgical History HEENT Surgical History: Reports: Cataract Surgery Respiratory Surgical History: Reports: 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) Other Respiratory Surgeries/Procedures: bronchoscopy GI Surgical History: Reports: Cholecystectomy, Colonoscopy Female Surgical History: Reports: Hysterectomy, Salpingo-Oophorectomy, Tubal Ligation Oncologic Surgical History: Reports: 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) Other Oncologic Surgeries/Procedures: chemo and radiation a year ago. Social & Family History - Family History Family Medical History: No Pertinent Family History - Tobacco Use Tobacco Use Status *Q: Never Tobacco User - Caffeine Use Caffeine Use: Reports: Coffee Other Caffeine Use: 1-2 cups per day ED ROS GENERAL - Review of Systems Review Of Systems: See Below Constitutional: Reports: Weakness HEENT: Reports: No Symptoms Respiratory: Reports: Shortness of Breath, Other (chest feeling tight. ) Cardiovascular: Reports: No Symptoms Endocrine: Reports: No Symptoms GI/Abdominal: Reports: No Symptoms : Reports: No Symptoms Musculoskeletal: Reports: No Symptoms Skin: Reports: No Symptoms ED EXAM, GENERAL - Physical Exam Exam: See Below Free Text/Narrative:: pt has o2 sats in the 91-92 range.She has been very sob. She has not been raising colored sputum or running a fever. Exam Limited By: No Limitations General Appearance: Alert, Anxious Ears: Normal TMs Nose: Normal Inspection Throat/Mouth: Normal Inspection Head: Atraumatic Neck: Normal Inspection Respiratory/Chest: Decreased Breath Sounds, Rhonchi Cardiovascular: Regular Rate, Rhythm GI/Abdominal: Soft, Non-Tender (Female) Exam: Deferred Rectal (Female) Exam: Deferred Back Exam: Normal Inspection Extremities: Normal Inspection Neurological: Alert, Oriented, Normal Cognition Psychiatric: Anxious Course - Vital Signs Last Recorded V/S: Last Vital Signs Temp 36.7 C 08/16/20 12:16 Pulse 87 08/16/20 12:16 Resp 18 08/16/20 12:16 BP 151/85 H 08/16/20 12:16 Pulse Ox 95 08/16/20 12:16 - Orders/Labs/Meds Labs: Laboratory Tests 08/16/20 08/16/20 08/16/20 Range/Units 12:25 12:25 12:25 WBC 3.8 L (4.5-11.0) K/uL RBC 4.08 (3.30-5.50) M/uL Hgb 12.2 (12.0-15.0) g/dL Hct 38.1 (36.0-48.0) % MCV 93 (80-98) fL MCH 30 (27-31) pg MCHC 32 (32-36) % Plt Count 207 (150-400) K/uL Neut % (Auto) 51.2 (36-66) % Lymph % (Auto) 25.7 (24-44) % [place] % (Auto) 15.1 H (2-6) % Eos % (Auto) 6.9 H (2-4) % Baso % (Auto) 1.1 H (0-1) % Sodium 137 L (140-148) mmol/L Potassium 4.0 (3.6-5.2) mmol/L Chloride 101 (100-108) mmol/L Carbon Dioxide 27 (21-32) mmol/L Anion Gap 13.0 (5.0-14.0) mmol/L BUN 20 H (7-18) mg/dL Creatinine 1.0 (0.6-1.0) mg/dL Est Cr Clr Drug Dosing 38.44 mL/min Estimated GFR (MDRD) 54 L (>60) Glucose 115 H (74-106) mg/dL Calcium 8.9 (8.5-10.1) mg/dL Total Bilirubin 0.2 D (0.2-1.0) mg/dL AST 24 (15-37) U/L ALT 33 (12-78) U/L Alkaline Phosphatase 65 (46-116) U/L NT-Pro-B Natriuret Pep 191 (5-450) pg/mL Total Protein 7.4 (6.4-8.2) g/dL Albumin 3.2 L (3.4-5.0) g/dL Globulin 4.2 H (2.3-3.5) g/dL Albumin/Globulin Ratio 0.8 L (1.2-2.2) Meds: Medications Discontinued Medications Generic Name Dose Route Start Last Admin Trade Name Freq PRN Reason Stop Dose Admin Albuterol/Ipratropium 3 ml 08/16/20 13:25 08/16/20 13:48 Albuterol/Ipratropium 3.0-0.5 Mg/3 Ml Neb Soln NEB 08/16/20 13:26 3 ml ONETIME ONE Administration Methylprednisolone Sodium Succinate 125 mg 08/16/20 13:26 08/16/20 13:48 Methylprednisolone Sodium Succinate 125 Mg/2 Ml Sdv IVPUSH 08/16/20 13:27 125 mg ONETIME ONE Administration Sodium Chloride 10 ml 08/16/20 13:26 Sodium Chloride 0.9% 10 Ml Syringe FLUSH ASDIRECTED PRN Keep Vein Open - Re-Assessments/Exams Free Text/Narrative Re-Assessment/Exam: 08/16/20 14:46 pt was given solumedrol 125 iv. She was given a duoneb. She is feeling some better. Her chest xray shows marked copd no infiltrate or flid. Her bnp was normal. Departure - Departure Time of Disposition: 14:38 Disposition: Home, Self-Care 01 Condition: Fair Clinical Impression: COPD exacerbation - Discharge Information Instructions: Chronic Obstructive Pulmonary Disease Exacerbation, [id number] Referrals: Omaira Cates PA [Primary Care Provider] - Forms: ED Department Discharge Care Plan Goals: switch to using nebulizer qid while sob, zithromax--zpack, predisone 10mg 2 tabs daily for 3 days, 1.5 tabs daily for 3 days then 1 tab daily for 3 days. Sepsis Event Note (ED) - Evaluation Sepsis Screening Result: No Definite Risk
[2020-08-16] MEDS ORDERED: methylPREDNISolone Sodium Succinate 125 MG/2 ML SDV IVPUSH ONE (13:26)
[2020-08-16] MEDS ORDERED: Sodium Chloride 0.9% 10 ML Syringe FLUSH PRN (13:26)
--- NOTE | 2020-08-17 13:16 | CR ---
CHEST: SOB CLINICAL HISTORY:SOB COMPARISON:05/16/2019 CT FINDINGS: Lungs are emphysematous. Heart size and pulmonary vascularity are normal. There is some pleural parenchymal scarring in the right upper lobe. There is an [id number] catheter from the right jugular approach. Tip is in the upper right atrium. Impression: Moderate changes of COPD No acute cardiac pulmonary process Right upper lobe scarring
== END 2020-08-16 14:49 | disposition home or self-care (01) ==
LOC: JP.ED 11:40
DX: J44.1 Chronic obstructive pulmonary disease with (acute) exacerbation (principal); E78.00 Pure hypercholesterolemia, unspecified; I10 Essential (primary) hypertension; K21.9 Gastro-esophageal reflux disease without esophagitis; Z88.5 Allergy status to narcotic agent; Z79.899 Other long term (current) drug therapy
CPT/HCPCS: 36415; 71046; 80053; 83880; 85025; 94640; 96374; 99285; J2930; 99284; J7620-GY

== ENCOUNTER 2020-11-17 14:06 | Emergency (ER) | payer MEDICARE, BC, MEDICAID ==
[2020-11-17] MEDS ORDERED: Benzonatate 100 MG Cap PO ONE (15:29)
--- NOTE | 2020-11-17 15:31 | EDM.PDOC ---
ED HPI GENERAL MEDICAL PROBLEM - General Chief Complaint: Respiratory Problem Stated Complaint: COVID SYMTOMS Time Seen by Provider: 11/17/20 14:59 Source of Information: Reports: Patient, RN Notes Reviewed History Limitations: Reports: No Limitations - History of Present Illness INITIAL COMMENTS - FREE TEXT/NARRATIVE: 75-year-old female presents emergency department day complaint shortness of breath weakness she is positive for Covid she is on day 9 did receive monoclonal antibody therapy as well. Her biggest complaint is a cough vaccine on mederna Chest Pain Score (Numeric/FACES): 5 - Related Data Allergies Allergy/AdvReac Type Severity Reaction Status Date / Time codeine AdvReac Nausea and Verified 11/17/20 14:43 Vomiting gabapentin AdvReac Irritabilit Verified 11/17/20 14:43 y Home Meds: Home Meds Fluticasone/Salmeterol [Advair 250-50] 1 inh INH BID 10/16/13 [History] Raloxifene [Evista] 60 mg PO DAILY 10/16/13 [History] buPROPion [Wellbutrin XL] 300 mg PO DAILY 10/16/13 [History] Ibuprofen [Advil] 200 mg PO Q6HR PRN 02/04/14 [History] Cholecalciferol (Vitamin D3) [Vitamin D] 2,000 units PO DAILY 02/06/14 [History] Multivitamin [Daily Multiple Vitamin] 1 tab PO DAILY 02/06/14 [History] Albuterol [Ventolin HFA] 2 puff IH Q4HR PRN 06/03/16 [History] Esomeprazole Magnesium [Nexium] 20 mg PO DAILY 06/03/16 [History] Nicotine Polacrilex [Nicotine Gum] 1 stick PO ASDIRECTED PRN 06/03/16 [History] traZODone 12.5 mg PO BEDTIME 06/03/16 [History] *Igg Infusions 0 mg IV ASDIRECTED 07/27/20 [History] Amifampridine Phosphate [Firdapse] 10 mg PO ASDIRECTED 07/27/20 [History] Benzonatate [Tessalon Perle] 200 mg PO Q8HR PRN #30 capsule 11/17/20 [Rx] Past Medical History HEENT History: Reports: Cataract Other HEENT History: upper and lower dental implants Cardiovascular History: Reports: High Cholesterol, Hypertension Respiratory History: Reports: Asthma, Bronchitis, Recurrent, COPD, Pneumonia, Recurrent, SOB Gastrointestinal History: Reports: GERD Genitourinary History: Reports: Acute Renal Failure [employer] History: Reports: Other [employer] History: hyster Musculoskeletal History: Reports: Back Pain, Chronic, Osteoarthritis, 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) Other Musculoskeletal History: Lambert-Eaton Syndrome Neurological History: Reports: Headaches, Chronic Psychiatric History: Reports: Anxiety, Depression, PTSD Immunologic History: Reports: 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) (COVID-19 breakthrough on mederna) Oncologic (Cancer) History: Reports: Lung, 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) Other Oncologic History: melanoma Dermatologic History: Reports: Melanoma - Past Surgical History HEENT Surgical History: Reports: Cataract Surgery Respiratory Surgical History: Reports: 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) Other Respiratory Surgeries/Procedures: bronchoscopy GI Surgical History: Reports: Cholecystectomy, Colonoscopy Female Surgical History: Reports: Hysterectomy, Salpingo-Oophorectomy, Tubal Ligation Oncologic Surgical History: Reports: 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) Other Oncologic Surgeries/Procedures: chemo and radiation a year ago. Social & Family History - Family History Family Medical History: No Pertinent Family History - Tobacco Use Tobacco Use Status *Q: Former Tobacco User Used Tobacco, but Quit: Yes Month/Year Tobacco Last Used: 0 - Caffeine Use Caffeine Use: Reports: Coffee Other Caffeine Use: 1-2 cups per day - Recreational Drug Use Recreational Drug Use: No ED ROS GENERAL - Review of Systems Review Of Systems: See Below Constitutional: Reports: Fever, Weakness, Fatigue, Night Sweats HEENT: Reports: No Symptoms Respiratory: Reports: Shortness of Breath, Cough Cardiovascular: Reports: Dyspnea on Exertion GI/Abdominal: Reports: No Symptoms ED EXAM, GENERAL - Physical Exam Exam: See Below Exam Limited By: No Limitations General Appearance: Alert, No Apparent Distress Respiratory/Chest: No Respiratory Distress, Lungs Clear, Normal Breath Sounds, No Accessory Muscle Use, Chest Non-Tender Cardiovascular: Regular Rate, Rhythm, No Murmur Course - Vital Signs Last Recorded V/S: Last Vital Signs Temp 98.3 F 11/17/20 14:41 Pulse 89 11/17/20 16:42 Resp 15 11/17/20 14:41 BP 146/74 H 11/17/20 16:42 Pulse Ox 96 11/17/20 15:12 - Orders/Labs/Meds Orders: Active Orders 24 hr Category Date Time Status Chest 1V Frontal [CR] Urgent Exams 11/17/20 16:08 Taken Labs: Laboratory Tests 11/17/20 11/17/20 11/17/20 Range/Units 15:35 15:35 15:35 WBC 4.5 (4.5-11.0) K/uL RBC 4.18 (3.30-5.50) M/uL Hgb 12.2 (12.0-15.0) g/dL Hct 37.2 (36.0-48.0) % MCV 89 (80-98) fL MCH 29 (27-31) pg MCHC 33 (32-36) % Plt Count 220 (150-400) K/uL Neut % (Auto) 61.0 (36-66) % Lymph % (Auto) 19.1 L (24-44) % Sibley % (Auto) 17.7 H (2-6) % Eos % (Auto) 2.0 (2-4) % Baso % (Auto) 0.2 (0-1) % Sodium 138 L (140-148) mmol/L Potassium 3.5 L (3.6-5.2) mmol/L Chloride 101 (100-108) mmol/L Carbon Dioxide 29 (21-32) mmol/L Anion Gap 11.5 (5.0-14.0) mmol/L BUN 8 (7-18) mg/dL Creatinine 0.7 (0.6-1.0) mg/dL Est Cr Clr Drug Dosing 54.92 mL/min Estimated GFR (MDRD) > 60 (>60) Glucose 95 (74-106) mg/dL Lactic Acid 1.2 (0.4-2.0) mmol/L Calcium 9.1 (8.5-10.1) mg/dL Total Bilirubin 0.4 (0.2-1.0) mg/dL AST 33 (15-37) U/L ALT 37 (12-78) U/L Alkaline Phosphatase 59 (46-116) U/L Troponin I (0.000-0.056) ng/mL Total Protein 7.4 (6.4-8.2) g/dL Albumin 3.3 L (3.4-5.0) g/dL Globulin 4.1 H (2.3-3.5) g/dL Albumin/Globulin Ratio 0.8 L (1.2-2.2) Procalcitonin ng/mL 11/17/20 11/17/20 Range/Units 15:35 15:35 WBC (4.5-11.0) K/uL RBC (3.30-5.50) M/uL Hgb (12.0-15.0) g/dL Hct (36.0-48.0) % MCV (80-98) fL MCH (27-31) pg MCHC (32-36) % Plt Count (150-400) K/uL Neut % (Auto) (36-66) % Lymph % (Auto) (24-44) % Sibley % (Auto) (2-6) % Eos % (Auto) (2-4) % Baso % (Auto) (0-1) % Sodium (140-148) mmol/L Potassium (3.6-5.2) mmol/L Chloride (100-108) mmol/L Carbon Dioxide (21-32) mmol/L Anion Gap (5.0-14.0) mmol/L BUN (7-18) mg/dL Creatinine (0.6-1.0) mg/dL Est Cr Clr Drug Dosing mL/min Estimated GFR (MDRD) (>60) Glucose (74-106) mg/dL Lactic Acid (0.4-2.0) mmol/L Calcium (8.5-10.1) mg/dL Total Bilirubin (0.2-1.0) mg/dL AST (15-37) U/L ALT (12-78) U/L Alkaline Phosphatase (46-116) U/L Troponin I < 0.017 (0.000-0.056) ng/mL Total Protein (6.4-8.2) g/dL Albumin (3.4-5.0) g/dL Globulin (2.3-3.5) g/dL Albumin/Globulin Ratio (1.2-2.2) Procalcitonin < 0.05 ng/mL Meds: Medications Discontinued Medications Generic Name Dose Route Start Last Admin Trade Name Freq PRN Reason Stop Dose Admin Benzonatate 200 mg 11/17/20 15:29 11/17/20 16:08 Benzonatate 100 Mg Cap PO 11/17/20 15:30 200 mg ONETIME ONE Administration Departure - Departure Time of Disposition: 17:03 Disposition: Home, Self-Care 01 Condition: Fair Clinical Impression: COVID - Discharge Information Prescriptions: Benzonatate [Tessalon Perle] 200 mg PO Q8HR PRN #30 capsule PRN Reason: Cough Instructions: 10 Things You Can Do to Manage Your COVID-19 Symptoms at Home - [facility] (09/04/2020) Referrals: Omaira Cates PA [Primary Care Provider] - Forms: ED Department Discharge Additional Instructions: Continue with your medications, use the Tessalon Perles as needed to help suppress cough, please followup with your primary care provider in 3-5 days if not better, please call return to the emergency department with worsening of symptoms. Sepsis Event Note (ED) - Evaluation Sepsis Screening Result: No Definite Risk - Focused Exam Vital Signs: Vital Signs Temp Pulse Resp BP Pulse Ox 11/17/20 16:42 89 146/74 H 11/17/20 15:12 87 147/72 H 96 11/17/20 14:42 91 159/80 H 94 L 11/17/20 14:41 98.3 F 86 15 158/82 H 96 11/17/20 14:23 98.3 F 86 15 158/82 H 96 - My Orders Last 24 Hours: My Active Orders 11/17/20 16:08 Chest 1V Frontal [CR] Urgent - Assessment/Plan Last 24 Hours: My Active Orders 11/17/20 16:08 Chest 1V Frontal [CR] Urgent Plan: Assessment Acuity = acute Site and laterality = COVID-19 Etiology = breakthrough Maderna vaccine Manifestations = cough Location of injury = Home Lab values = CBC, CMP, troponin, lactic acid within normal limits chest x-ray consistent with Covid type pattern Plan She had some relief with the Tessalon Perles prescription written for Tessalon Perles milligrams p.o. every 6 hours as needed #30 This note was dictated using [employer] voice recognition software please call with any questions on syntax or grammar.
[2020-11-17 16:42] VITALS: BP 146/74; PULSE 89
--- NOTE | 2020-11-18 09:17 | CR ---
CHEST: Portable 11/09/2020 at 4:46 PM CLINICAL HISTORY:SOB, covid COMPARISON: CT 10/21/2020 FINDINGS: Lungs are hyperaerated. There is minimal patchy density in both lung bases. This is increased since prior study. There is some scarring in the right upper lobe. Patient has a right jugular Usueal-d-Zmeu catheter. There are atherosclerotic changes in the aorta.. IMPRESSION: COPD Minimal new patchy densities in both lung bases. This may represent a pneumonia or pneumonitis
== END 2020-11-17 18:15 | disposition home or self-care (01) ==
LOC: JP.ED 14:06
DX: U07.1 COVID-19 (principal); E78.00 Pure hypercholesterolemia, unspecified; I10 Essential (primary) hypertension; J44.9 Chronic obstructive pulmonary disease, unspecified; K21.9 Gastro-esophageal reflux disease without esophagitis; Z88.5 Allergy status to narcotic agent; Z88.8 Allergy status to other drugs, medicaments and biological substances; Z79.899 Other long term (current) drug therapy; Z87.891 Personal history of nicotine dependence
CPT/HCPCS: 36415; 71045; 80053; 83605; 84145; 84484; 85025; 99285; A9270

== ENCOUNTER 2023-06-09 18:48 | Emergency (ER) | payer MEDICARE, BC, MEDICAID ==
[2023-06-09 18:59] VITALS: BP 164/71; PULSE 99
== END 2023-06-09 19:29 | disposition home or self-care (01) ==
LOC: JP.ED 18:48
DX: L03.031 Cellulitis of right toe (principal); I10 Essential (primary) hypertension; J44.9 Chronic obstructive pulmonary disease, unspecified; K21.9 Gastro-esophageal reflux disease without esophagitis; Z79.51 Long term (current) use of inhaled steroids; Z79.02 Long term (current) use of antithrombotics/antiplatelets; Z88.5 Allergy status to narcotic agent; Z88.8 Allergy status to other drugs, medicaments and biological substances; Z90.710 Acquired absence of both cervix and uterus; Z79.899 Other long term (current) drug therapy
CPT/HCPCS: 99283

== ENCOUNTER 2024-08-12 11:57 | Inpatient (IN) | payer MEDICARE, BC ==
[2024-08-12 14:19] LABS: APPEARANCE,URINE CLEAR (CLEAR); BILIRUBIN,URINE NEGATIVE (NEGATIVE); COLOR,URINE YELLOW (YELLOW); GLUCOSE,URINE NEGATIVE (NEGATIVE); KETONES,URINE NEGATIVE (NEGATIVE); LEUKOCYTE ESTERASE,URINE NEGATIVE (NEGATIVE); NITRITE,URINE NEGATIVE (NEGATIVE); OCCULT BLOOD,URINE TRACE-INTACT (NEGATIVE); PH,URINE 6.5 (5.0-8.0); PROTEIN,URINE NEGATIVE (NEGATIVE); UROBILINOGEN,URINE 0.2 EU/dL (0.2-1.0)
[2024-08-12 14:26] LABS: AMORPHOUS SEDIMENT,URINE NOT SEEN; BACTERIA,URINE RARE; EPITHELIAL CELLS,URINE FEW; MUCUS,URINE NOT SEEN; RBC,URINE 0-5 (0-5); WBC,URINE 0-5 (0-5)
[2024-08-12] MEDS: Piperacillin/Tazobactam 2.25 GM in Sodium Chloride 0.9% 50 ML IV ONE (15:45)
[2024-08-12] MEDS ORDERED: Ondansetron 4 MG Tab.DIS PO PRN (16:38)
[2024-08-12] MEDS ORDERED: Melatonin 3 MG Tab PO PRN (16:38)
[2024-08-12] MEDS ORDERED: LORazepam 0.5 MG Tab PO PRN (16:38)
[2024-08-12] MEDS ORDERED: Ondansetron 4 MG/2 ML SDV IV PRN (16:38)
[2024-08-12] MEDS ORDERED: Magnesium Hydroxide 400 MG/5 ML Susp 30 ML Cup PO PRN (16:38)
[2024-08-12] MEDS ORDERED: Sennosides/Docusate Sodium 50-8.6 MG Tab PO PRN (16:38)
[2024-08-12] MEDS ORDERED: Acetaminophen 325 MG Tab PO PRN (16:38)
[2024-08-12] MEDS: Piperacillin/Tazobactam/Dext 4.5 GM in Premix Bag 1 BAG IV SCH (20:12)
[2024-08-12] MEDS ORDERED: traZODone 50 MG Tab PO SCH (21:00)
[2024-08-12] MEDS: Lactobacillus Rhamnosus GG (Probiotic) Cap PO SCH (21:46)
[2024-08-12] MEDS: Acyclovir 200 MG Cap PO SCH (21:46)
[2024-08-12] MEDS: traZODone 50 MG Tab PO SCH (21:55)
[2024-08-12] MEDS: Sodium Chloride 0.9% 1,000 ML IV SCH (21:56)
[2024-08-12] MEDS: Apixaban 2.5 MG Tab PO SCH (22:11)
[2024-08-13 02:30] LABS: HEMATOCRIT 25.7 % (34.3-46.0); HEMOGLOBIN 8.4 g/dL (11.2-15.5); MEAN CORPUSCULAR HEMOGLOBIN 30.9 pg (31.6-35.5); MEAN CORPUSCULAR HGB CONC 32.7 g/dL (31.6-35.5); MEAN CORPUSCULAR VOLUME 94.5 fL (81.4-99.0); PLATELET COUNT,PLT 32 K/uL (130-375); RED BLOOD CELL COUNT 2.72 M/uL (3.77-5.24); WHITE BLOOD CELL COUNT,WBC 1.4 K/uL (3.2-11.0)
[2024-08-13 03:21] LABS: ATYPICAL LYMPHOCYTES FEW; EOSINOPHILS ABSOLUTE MAN 0.04 K/uL (0.00-0.40); EOSINOPHILS PERCENT MAN 3 % (2-4); LYMPHOCYTES PERCENT MAN 86 % (24-44); MONOCYTES ABSOLUTE MAN 0.03 K/uL (0.20-0.90); MONOCYTES PERCENT MAN 2 % (2-6); NEUTROPHILS ABSOLUTE MAN 0.13 K/uL (1.0-7.6); SEG NEUTROPHILS PERCENT MAN 9 % (36-66)
[2024-08-13 03:24] LABS: ANION GAP 9.3 mmol/L (5.0-14.0); CALCIUM 8.2 mg/dL (8.5-10.1); CREATININE 0.9 mg/dL (0.6-1.0); EST CRCL DRUG DOSING (CG) 33.21 mL/min; POTASSIUM,K 4.3 mmol/L (3.6-5.2)
[2024-08-13] MEDS: Pantoprazole 40 MG Tab.CR PO SCH (08:34)
[2024-08-13] MEDS: Raloxifene 60 MG Tab PO SCH (08:34)
[2024-08-13] MEDS: buPROPion 150 MG Tab.ER PO SCH (08:35)
[2024-08-13] MEDS: Tiotropium BR/Olodaterol HCL 4 GM Inhalation Spray 2.5mcg/1 dose; 10 doses INH SCH (08:36)
[2024-08-13] MEDS: Saliva Substitute Oral Spray 120 ML Bottle MUCMEM PRN (20:10)
[2024-08-14 06:01] LABS: HEMATOCRIT 26.1 % (34.3-46.0); HEMOGLOBIN 8.6 g/dL (11.2-15.5); MEAN CORPUSCULAR HEMOGLOBIN 31.3 pg (31.6-35.5); MEAN CORPUSCULAR VOLUME 94.9 fL (81.4-99.0); PLATELET COUNT,PLT 33 K/uL (130-375); RED BLOOD CELL COUNT 2.75 M/uL (3.77-5.24); WHITE BLOOD CELL COUNT,WBC 1.2 K/uL (3.2-11.0)
[2024-08-14 06:15] LABS: CALCIUM 8.4 mg/dL (8.5-10.1); CREATININE 0.8 mg/dL (0.6-1.0); EST CRCL DRUG DOSING (CG) 37.36 mL/min; POTASSIUM,K 3.5 mmol/L (3.6-5.2)
[2024-08-14 06:20] LABS: ANION GAP 12.5 mmol/L (5.0-14.0)
[2024-08-14 07:13] LABS: EOSINOPHILS ABSOLUTE MAN 0.07 K/uL (0.00-0.40); EOSINOPHILS PERCENT MAN 6 % (2-4); LYMPHOCYTES ABSOLUTE MAN 0.96 K/uL (0.8-3.3); LYMPHOCYTES PERCENT MAN 80 % (24-44); MONOCYTES ABSOLUTE MAN 0.07 K/uL (0.20-0.90); MONOCYTES PERCENT MAN 6 % (2-6); SEG NEUTROPHILS PERCENT MAN 8 % (36-66)
[2024-08-14 07:14] LABS: ATYPICAL LYMPHOCYTES FEW
[2024-08-14] MEDS: Potassium Chloride 20 MEQ Tab.ER PO ONE (08:56)
[2024-08-14] MEDS: Benzonatate 100 MG Cap PO PRN (11:58)
[2024-08-14] MEDS ORDERED: VENETOCLAX 100 MG PO SCH (12:15)
[2024-08-14] MEDS: VENCLEXTA 100 MG PO SCH (13:21)
[2024-08-15 05:59] LABS: HEMATOCRIT 28.4 % (34.3-46.0); HEMOGLOBIN 9.1 g/dL (11.2-15.5); MEAN CORPUSCULAR HEMOGLOBIN 30.7 pg (31.6-35.5); MEAN CORPUSCULAR VOLUME 95.9 fL (81.4-99.0); PLATELET COUNT,PLT 38 K/uL (130-375); RED BLOOD CELL COUNT 2.96 M/uL (3.77-5.24); WHITE BLOOD CELL COUNT,WBC 1.4 K/uL (3.2-11.0)
[2024-08-15 06:10] LABS: ANION GAP 6.5 mmol/L (5.0-14.0); CALCIUM 8.9 mg/dL (8.5-10.1); CREATININE 0.8 mg/dL (0.6-1.0); EST CRCL DRUG DOSING (CG) 37.36 mL/min; POTASSIUM,K 4.1 mmol/L (3.6-5.2)
[2024-08-15 06:43] LABS: BAND ABSOLUTE MAN 0.01 K/uL; BAND PERCENT MAN 1 % (5-11); EOSINOPHILS ABSOLUTE MAN 0.14 K/uL (0.00-0.40); EOSINOPHILS PERCENT MAN 10 % (2-4); LYMPHOCYTES ABSOLUTE MAN 1.02 K/uL (0.8-3.3); LYMPHOCYTES PERCENT MAN 73 % (24-44); MONOCYTES ABSOLUTE MAN 0.17 K/uL (0.20-0.90); MONOCYTES PERCENT MAN 12 % (2-6); NEUTROPHILS ABSOLUTE MAN 0.06 K/uL (1.0-7.6); SEG NEUTROPHILS PERCENT MAN 4 % (36-66)
[2024-08-16 05:50] LABS: HEMATOCRIT 27.7 % (34.3-46.0); HEMOGLOBIN 8.8 g/dL (11.2-15.5); MEAN CORPUSCULAR HEMOGLOBIN 31.2 pg (31.6-35.5); MEAN CORPUSCULAR HGB CONC 31.8 g/dL (31.6-35.5); MEAN CORPUSCULAR VOLUME 98.2 fL (81.4-99.0); RED BLOOD CELL COUNT 2.82 M/uL (3.77-5.24); WHITE BLOOD CELL COUNT,WBC 1.5 K/uL (3.2-11.0)
[2024-08-16 05:55] LABS: NEUTROPHILS ABSOLUTE AUTO 0.05 K/uL (1.0-7.6); WHITE BLOOD CELL COUNT,WBC 1.4 K/uL (3.2-11.0)
[2024-08-16 06:11] LABS: ALBUMIN 2.9 g/dL (3.4-5.0); ANION GAP 7.3 mmol/L (5.0-14.0); BLOOD UREA NITROGEN,BUN 13 mg/dL (7-18); CARBON DIOXIDE,CO2 28 mmol/L (21-32); CHLORIDE,CL 106 mmol/L (100-108); CREATININE 0.8 mg/dL (0.6-1.0); EST CRCL DRUG DOSING (CG) 37.36 mL/min; ESTIMATED GFR 75 mL/min (>60); GLUCOSE RANDOM 91 mg/dL (74-106); PHOSPHORUS 3.6 mg/dL (2.5-4.9); SODIUM,NA 141 mmol/L (140-148)
[2024-08-16 06:21] LABS: MAGNESIUM 1.9 mg/dL (1.8-2.4)
[2024-08-16 06:22] LABS: C-REACTIVE PROTEIN < 0.50 mg/dL (<0.50)
[2024-08-17 05:03] LABS: HEMATOCRIT 27.9 % (34.3-46.0); HEMOGLOBIN 8.8 g/dL (11.2-15.5); MEAN CORPUSCULAR HEMOGLOBIN 30.8 pg (31.6-35.5); MEAN CORPUSCULAR HGB CONC 31.5 g/dL (31.6-35.5); MEAN CORPUSCULAR VOLUME 97.6 fL (81.4-99.0); RED BLOOD CELL COUNT 2.86 M/uL (3.77-5.24); WHITE BLOOD CELL COUNT,WBC 1.4 K/uL (3.2-11.0)
[2024-08-17 05:08] LABS: NEUTROPHILS ABSOLUTE AUTO 0.1 K/uL (1.0-7.6); WHITE BLOOD CELL COUNT,WBC 1.4 K/uL (3.2-11.0)
[2024-08-17 05:13] LABS: MAGNESIUM 1.9 mg/dL (1.8-2.4)
[2024-08-17 05:14] LABS: ALBUMIN 2.8 g/dL (3.4-5.0); ANION GAP 6.2 mmol/L (5.0-14.0); BLOOD UREA NITROGEN,BUN 13 mg/dL (7-18); CARBON DIOXIDE,CO2 28 mmol/L (21-32); CHLORIDE,CL 107 mmol/L (100-108); CREATININE 0.8 mg/dL (0.6-1.0); EST CRCL DRUG DOSING (CG) 36.82 mL/min; ESTIMATED GFR 75 mL/min (>60); GLUCOSE RANDOM 94 mg/dL (74-106); PHOSPHORUS 3.4 mg/dL (2.5-4.9); POTASSIUM,K 3.8 mmol/L (3.6-5.2); SODIUM,NA 141 mmol/L (140-148)
[2024-08-17 05:35] LABS: C-REACTIVE PROTEIN < 0.50 mg/dL (<0.50)
[2024-08-17] MEDS: Nystatin Susp 100,000 Unit/ML 5 ML UD Cup PO SCH (17:15)
[2024-08-18 05:08] LABS: HEMATOCRIT 27.8 % (34.3-46.0); HEMOGLOBIN 8.9 g/dL (11.2-15.5); MEAN CORPUSCULAR HEMOGLOBIN 31.4 pg (31.6-35.5); MEAN CORPUSCULAR VOLUME 98.2 fL (81.4-99.0); PLATELET COUNT,PLT 39 K/uL (130-375); RED BLOOD CELL COUNT 2.83 M/uL (3.77-5.24); WHITE BLOOD CELL COUNT,WBC 1.7 K/uL (3.2-11.0)
[2024-08-18 05:18] LABS: MAGNESIUM 1.9 mg/dL (1.8-2.4)
[2024-08-18 05:20] LABS: ALBUMIN 2.8 g/dL (3.4-5.0); ANION GAP 9.1 mmol/L (5.0-14.0); BLOOD UREA NITROGEN,BUN 13 mg/dL (7-18); CALCIUM 8.8 mg/dL (8.5-10.1); CARBON DIOXIDE,CO2 28 mmol/L (21-32); CHLORIDE,CL 105 mmol/L (100-108); CREATININE 0.7 mg/dL (0.6-1.0); EST CRCL DRUG DOSING (CG) 41.86 mL/min; ESTIMATED GFR 88 mL/min (>60); GLUCOSE RANDOM 90 mg/dL (74-106); PHOSPHORUS 2.8 mg/dL (2.5-4.9); POTASSIUM,K 3.8 mmol/L (3.6-5.2); SODIUM,NA 142 mmol/L (140-148)
[2024-08-18 05:24] LABS: ANISOCYTOSIS FEW; ATYPICAL LYMPHOCYTES MANY; EOSINOPHILS ABSOLUTE MAN 0.07 K/uL (0.00-0.40); EOSINOPHILS PERCENT MAN 4 % (2-4); LYMPHOCYTES ABSOLUTE MAN 1.09 K/uL (0.8-3.3); LYMPHOCYTES PERCENT MAN 64 % (24-44); MONOCYTES ABSOLUTE MAN 0.41 K/uL (0.20-0.90); MONOCYTES PERCENT MAN 24 % (2-6); NEUTROPHILS ABSOLUTE MAN 0.14 K/uL (1.0-7.6); POIKILOCYTOSIS FEW; SEG NEUTROPHILS PERCENT MAN 8 % (36-66)
[2024-08-18 05:55] LABS: C-REACTIVE PROTEIN < 0.50 mg/dL (<0.50)
[2024-08-19 05:03] LABS: NEUTROPHILS ABSOLUTE AUTO 0.17 K/uL (1.0-7.6); WHITE BLOOD CELL COUNT,WBC 1.6 K/uL (3.2-11.0)
[2024-08-19 11:37] VITALS: BP 124/72; PULSE 73
[2024-08-19] MEDS: Levofloxacin 250 MG Tab PO ONE (14:47)
== END 2024-08-19 16:24 | disposition home or self-care (01) | DRG 834 ==
LOC: JP.ED 11:57 → JP.MS 15:54
PROVIDERS: ADMIT Internal Medicine; ATTEND Hospitalist
PROC: 30233N1 Transfusion of Nonautologous Red Blood Cells into Peripheral Vein, Percutaneous Approach (ICD-10-PCS; principal; 2024-08-12)
DX: C92.00 Acute myeloblastic leukemia, not having achieved remission (principal); D61.810 Antineoplastic chemotherapy induced pancytopenia; C34.90 Malignant neoplasm of unspecified part of unspecified bronchus or lung; G70.80 Lambert-Eaton syndrome, unspecified; I10 Essential (primary) hypertension; D64.81 Anemia due to antineoplastic chemotherapy; Z66 Do not resuscitate; J44.9 Chronic obstructive pulmonary disease, unspecified; K21.9 Gastro-esophageal reflux disease without esophagitis; G89.29 Other chronic pain; M54.9 Dorsalgia, unspecified; M19.90 Unspecified osteoarthritis, unspecified site; R51.9 Headache, unspecified; F41.9 Anxiety disorder, unspecified; D70.1 Agranulocytosis secondary to cancer chemotherapy; F32.A Depression, unspecified; T45.1X5A Adverse effect of antineoplastic and immunosuppressive drugs, initial encounter; K59.00 Constipation, unspecified; D70.9 Neutropenia, unspecified; F43.12 Post-traumatic stress disorder, chronic; Z85.820 Personal history of malignant melanoma of skin; Z90.49 Acquired absence of other specified parts of digestive tract; Z79.899 Other long term (current) drug therapy; Z79.01 Long term (current) use of anticoagulants; Z98.49 Cataract extraction status, unspecified eye; Z88.8 Allergy status to other drugs, medicaments and biological substances; Z90.710 Acquired absence of both cervix and uterus; Z86.711 Personal history of pulmonary embolism; Z98.51 Tubal ligation status
CPT/HCPCS: 36415; 36430; 71046; 71046-26; 80048; 80053; 80069; 81001; 82784; 83605; 83735; 85025; 85027; 85048; 86140; 86850; 86900; 86901; 86920; 86922; 87040; 94640; 96361; 96365; 97110-GP; 97161-GP; 97530-GP; 99222; 99232; 99238; 99284; A9270-GY; J1459; J2543; J7030; P9016

== ENCOUNTER 2024-10-07 10:37 | Emergency (ER) | payer MEDICARE, BC ==
[2024-10-07] MEDS ORDERED: Sodium Chloride 0.9% 10 ML Syringe FLUSH PRN (11:08)
[2024-10-07 11:32] LABS: RED BLOOD CELL COUNT 2.75 M/uL (3.77-5.24)
[2024-10-07 11:50] LABS: A/G RATIO 0.9 (1.2-2.2); ALANINE AMINOTRANSFERASE,ALT 21 U/L (12-78); ASPARTATE AMNIOTRANSFERASE,AST 20 U/L (15-37); BILIRUBIN TOTAL 0.4 mg/dL (0.2-1.0); BLOOD UREA NITROGEN,BUN 18 mg/dL (7-18); CARBON DIOXIDE,CO2 29 mmol/L (21-32); CHLORIDE,CL 106 mmol/L (100-108); CREATININE 0.7 mg/dL (0.6-1.0); EST CRCL DRUG DOSING (CG) 40.60 mL/min; ESTIMATED GFR 88 mL/min (>60); GLUCOSE RANDOM 117 mg/dL (74-106); POTASSIUM,K 4.2 mmol/L (3.6-5.2); PROTEIN TOTAL,TP 6.9 g/dL (6.4-8.2); SODIUM,NA 140 mmol/L (140-148)
[2024-10-07 11:50] LABS: INR 1.0; PTT,PARTIAL THROMBOPLSTIN TIME 62.4 sec (21.8-27.3)
[2024-10-07 12:25] LABS: WHITE BLOOD CELL COUNT,WBC 0.6 K/uL (3.2-11.0)
[2024-10-07 12:27] LABS: BAND ABSOLUTE MAN 0.01 K/uL; BAND PERCENT MAN 1 % (5-11); EOSINOPHILS ABSOLUTE MAN 0.03 K/uL (0.00-0.40); EOSINOPHILS PERCENT MAN 5 % (2-4); LYMPHOCYTES ABSOLUTE MAN 0.47 K/uL (0.8-3.3); LYMPHOCYTES PERCENT MAN 79 % (24-44); METAMYELOCYTE ABSOLUTE MAN 0.01 K/uL; METAMYELOCYTE PERCENT MAN 2 %; MONOCYTES ABSOLUTE MAN 0.04 K/uL (0.20-0.90); MONOCYTES PERCENT MAN 6 % (2-6); NEUTROPHILS ABSOLUTE MAN 0.04 K/uL (1.0-7.6); SEG NEUTROPHILS PERCENT MAN 7 % (36-66)
[2024-10-07 12:28] LABS: ATYPICAL LYMPHOCYTES FEW
[2024-10-07 12:29] LABS: PLATELET COUNT,PLT 20 K/uL (130-375)
[2024-10-07 14:48] VITALS: PULSE 83
[2024-10-07 15:06] VITALS: BP 125/88
== END 2024-10-07 16:20 ==
LOC: JP.ED 10:37
DX: K92.1 Melena (principal); D61.818 Other pancytopenia; C92.00 Acute myeloblastic leukemia, not having achieved remission; I10 Essential (primary) hypertension; J45.909 Unspecified asthma, uncomplicated; K21.9 Gastro-esophageal reflux disease without esophagitis; Z90.49 Acquired absence of other specified parts of digestive tract; Z88.5 Allergy status to narcotic agent; Z88.8 Allergy status to other drugs, medicaments and biological substances; Z79.899 Other long term (current) drug therapy; Z79.51 Long term (current) use of inhaled steroids; Z79.01 Long term (current) use of anticoagulants
CPT/HCPCS: 36415; 71046; 71046-26; 80053; 85025; 85610; 85730; 99285